=== PATIENT | male | born 1965 | race Caucasian/White ===

== ENCOUNTER 2017-09-26 11:21 | Emergency (ER) | payer OTHER ==
[~2017-09-26] VITALS: Ht 172.7 cm; Wt 77.1 kg
[~2017-09-26 11:21] MED LIST: ASPIRIN81 M1 PO; NKHM; TYLENOL ES500 MG PO
[2017-09-26 11:29] VITALS: BP 154/75
[2017-09-26] MEDS ORDERED: CYCLOBENZAPRINE10 MG PO (13:36)
[2017-09-26] MEDS ORDERED: MEDROL DOSEPAK4 MG PO (13:36)
[2017-09-26] MEDS ORDERED: NAPROSYN500 MG PO (13:36)
== END 2017-09-26 13:40 | disposition home or self-care (01) ==
LOC: ED 11:21
DX: S39.012A Strain of muscle, fascia and tendon of lower back, initial encounter (principal); F17.200 Nicotine dependence, unspecified, uncomplicated; Z79.82 Long term (current) use of aspirin; W00.0XXA Fall on same level due to ice and snow, initial encounter; Y93.89 Activity, other specified; Y92.89 Other specified places as the place of occurrence of the external cause; Y99.8 Other external cause status